=== PATIENT | female | born 1940 | race Caucasian/White ===

== ENCOUNTER 2017-05-04 12:32 | Emergency (ER) | payer MEDICARE ==
[~2017-05-04] VITALS: Ht 157.5 cm; Wt 100.0 kg
[2017-05-04] MEDS ORDERED: LEVOTHYROXIN0.088 MG PO (12:55)
[2017-05-04] MEDS ORDERED: COLESTIPOL HYDRO1 GM PO (12:56)
[2017-05-04] MEDS ORDERED: ALPRAZOLAM0.25 MG PO (12:56)
[2017-05-04] MEDS ORDERED: POTASSIUM CHLO10 ME7 PO (12:57)
[2017-05-04] MEDS ORDERED: CITALOPRAM40 MG PO (12:57)
[2017-05-04] MEDS ORDERED: HCTZ 25MG25 MG PO (12:58)
[2017-05-04] MEDS ORDERED: ALLOPURINOL300 M1 PO (12:58)
[2017-05-04 13:10] LABS: EOS # 0.1 (0.04-0.40); EOS % 2.8 % (1.0-5.0); HEMATOCRIT 40.8 % (37.0-47.0); HEMOGLOBIN 13.5 g/dL (12.5-16.0); LYMPH# 0.8 (1.50-4.00); MEAN CELL VOLUME 96 fl (78-100); MEAN CORPUSCULAR HEMOGLOBIN 32 pg (27-31); MEAN CORPUSCULAR HGB CONC 33 g/dL (33-37); MEAN PLATELET VOLUME 9.4 fl (7.4-10.4); MONO # 0.5 (0.20-0.80); NEU # 3.2 (1.40-6.50); PLATELET COUNT 185 K/mm3 (130-400); RED BLOOD COUNT 4.25 M/mm3 (4.10-5.30); RED CELL DISTRIBUTION WIDTH 13.6 % (11.5-14.5); WHITE BLOOD COUNT 4.6 K/mm3 (4.8-10.8)
[2017-05-04 13:22] LABS: BUN/CREATININE RATIO 14.2 (6.0-26.0); CALCIUM 8.9 mg/dL (8.4-10.2); POTASSIUM 4.2 mmol/L (3.6-5.0)
[2017-05-04] MEDS ORDERED: VALACYCLOVIR1 GM PO (13:58)
[2017-05-04 14:06] VITALS: BP 154/80
== END 2017-05-04 14:07 | disposition home or self-care (01) ==
LOC: ED 12:32
PROVIDERS: Family Medicine
DX: B02.22 Postherpetic trigeminal neuralgia (principal); I10 Essential (primary) hypertension; E03.9 Hypothyroidism, unspecified

== ENCOUNTER 2019-08-19 11:00 | Outpatient (RCR) | payer MEDICARE ==
[2017-12-23 04:46] VITALS: BP 142/47
[~2019-08-19 11:00] MED LIST: ALLOPURINOL300 M1 PO; ALPRAZOLAM0.25 MG PO; CITALOPRAM40 MG PO; COLESTIPOL HYDRO1 GM PO; HCTZ 25MG25 MG PO; LEVOTHYROXIN0.088 MG PO; POTASSIUM CHLO10 ME7 PO; VALACYCLOVIR1 GM PO
== END 2019-08-19 11:30 | disposition still patient (30) ==
LOC: PT 11:00
DX: R42 Dizziness and giddiness (principal)